=== PATIENT | male | born 1975 | race Caucasian/White ===

== ENCOUNTER 2023-05-09 08:49 | Emergency (ER) | payer OTHER ==
--- NOTE | 2023-05-09 09:01 | ED ---
Neuro HPI - General Stated Complaint: AMS Time Seen by Provider: 05/09/23 08:50 - History of Present Illness Is the patient presenting with stroke symptoms?: Yes Review of Systems ROS Statement: Those systems with pertinent positive or pertinent negative responses have been documented in the HPI. ROS Other: All systems not noted in ROS Statement are negative. Disposition Referrals: None,Stated [Primary Care Provider] - 1-2 days
--- NOTE | 2023-05-09 09:03 | ED ---
General Adult HPI - General Chief complaint: Neuro Symptoms/Deficit Stated complaint: AMS Time Seen by Provider: 05/09/23 08:50 Source: EMS Mode of arrival: EMS - History of Present Illness Initial comments: 47-year-old male with no past medical history presents emergency department with possible strokelike symptoms. He showed up at an auto repair shop this morning and was visibly confused. They state that he was walking around and had an episode of vomiting. EMS was called. They state that they could not get any answers from the patient. He could not say his name and was not following any commands. They got a hold of the patient's daughter who states that he had a s imilar episode one month ago however did not seek follow-up. He has no reported medical problems and does not take any medications. It is unknown when the patient was his last known well as he lives alone and his daughters live out of town. The patient denies any pain. No visible head injury. No other alleviating, precipitating or modifying factors - Related Data Allergies Allergy/AdvReac Type Severity Reaction Status Date / Time No Known Allergies Allergy Verified 05/09/23 09:19 Review of Systems ROS Statement: Those systems with pertinent positive or pertinent negative responses have been documented in the HPI. ROS Other: All systems not noted in ROS Statement are negative. Past Medical History Past Medical History: Unable to Obtain History of Any Multi-Drug Resistant Organisms: Unobtainable Past Surgical History: Unable to Obtain Past Psychological History: Unable to Obtain Smoking Status: Unknown if ever smoked Past Alcohol Use History: Unable to Obtain Past Drug Use History: Unable to Obtain General Exam Limitations: altered mental status (Significant expressive aphasia) General appearance: alert Head exam: Present: atraumatic, normocephalic, normal inspection Eye exam: Present: normal appearance, PERRL, EOMI. Absent: scleral icterus, conjunctival injection, periorbital swelling ENT exam: Present: normal exam, mucous membranes moist Respiratory exam: Present: normal lung sounds bilaterally. Absent: respiratory distress, wheezes, rales, rhonchi, stridor Cardiovascular Exam: Present: regular rate, normal rhythm, normal heart sounds. Absent: systolic murmur, diastolic murmur, rubs, gallop, clicks GI/Abdominal exam: Present: soft, normal bowel sounds. 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 Mild dysarthria, right-sided facial droop) Psychiatric exam: Present: flat affect Skin exam: Present: warm, dry, intact, normal color. Absent: rash Course Vital Signs 05/09/23 05/09/23 05/09/23 08:51 09:00 09:15 Temperature 98.0 F 98.0 F Pulse Rate 75 75 78 Respiratory 18 18 18 Rate Blood Pressure 150/100 150/99 164/100 O2 Sat by Pulse 95 97 97 Oximetry 05/09/23 05/09/23 05/09/23 09:30 09:45 10:00 Temperature Pulse Rate 76 77 78 Respiratory 18 18 18 Rate Blood Pressure 159/99 155/100 164/108 O2 Sat by Pulse 96 97 97 Oximetry 05/09/23 10:14 Temperature 98.0 F Pulse Rate 75 Respiratory 18 Rate Blood Pressure 152/100 O2 Sat by Pulse 97 Oximetry - Reevaluation(s) Reevaluation #1: Spoke with Dr. Inman - patient going for imaging 05/09/23 09:04 Medical Decision Making - Medical Decision Making Was pt. sent in by a medical professional or institution (, PA, ANESTHESIA TECHNICIAN, urgent care, hospital, or penitentiary...) When possible be specific @ -No Did you speak to anyone other than the patient for history (EMS, parent, family, police, friend...)? What history was obtained from this source @ -I spoke with EMS and the patient's daughter who states she last talked to him on Sunday Did you review nursing and triage notes (agree or disagree)? Why? @ -I reviewed and agree with nursing and triage notes Were old charts reviewed (outside hosp., previous admission, EMS record, old EKG, old radiological studies, urgent care reports/EKG's, penitentiary records)? Report findings @ -No old charts available for review Differential Diagnosis (chest pain, altered mental status, abdominal pain women, abdominal pain men, vaginal bleeding, weakness, fever, dyspnea, syncope, headache, dizziness, GI bleed, back pain, seizure, CVA, palpatations, mental health, musculoskeletal)? @ -Differential CVA Ischemic stroke, hemorrhagic stroke, brain tumor, atypical migraine, Wernicke's encephalopathy, seizure, multiple sclerosis, meningitis, encephalitis, hypoglycemia, Guillain-Yee, electrolytes disturbance, myasthenia gravis.... This is not meant to be an all-inclusive list EKG interpreted by me (3pts min.). @ -Yes and demonstrates sinus rhythm with a rate of 74. Para 139. QRS 85. QTC of 391. Mild ST segment elevation in V3 isolated X-rays interpreted by me (1pt min.). @ -None done CT interpreted by me (1pt min.). @ -Yes and demonstrates ischemic stroke in the left parietal region U/S interpreted by me (1pt. min.). @ -None done What testing was considered but not performed or refused? (CT, X-rays, U/S, labs)? Why? @ -None What meds were considered but not given or refused? Why? @ -None Did you discuss the management of the patient with other professionals (professionals i.e. Dr., PA, ANESTHESIA TECHNICIAN, lab, RT, psych nurse, social media coordinator, sales account associate, teacher, facilities officer, egg caser)? Give summary @ -I spoke with Dr. Inman. He recommends 180 mg of Brillinta, 325 mg Aspirin and 80 mg of atorvastatin. Would like the patient transferred to [facility]. Also spoke with Dr. Miranda doctor Was smoking cessation discussed for >3mins.? @ -No Was critical care preformed (if so, how long)? @ -yes, 40 minutes Were there social determinants of health that impacted care today? How? (Homelessness, low income, unemployed, alcoholism, drug addiction, transportation, low edu. Level, literacy, decrease access to med. care, nursing home, rehab)? @ -No Was there de-escalation of care discussed even if they declined (Discuss DNR or withdrawal of care, Hospice)? DNR status @ -No What co-morbidities impacted this encounter? (DM, HTN, Smoking, COPD, CAD, Cancer, CVA, ARF, Chemo, Hep., AIDS, mental health diagnosis, sleep apnea, morbid obesity)? @ -None Was patient admitted / discharged? Hospital course, mention meds given and route, prescriptions, significant lab abnormalities, going to OR and other per tinent info. @ -Arrival patient was placed into room 24. Thorough history is attempted. Patient does have right-sided deficits including facial droop or extremity weakness. He is expressively aphasic. Code stroke was activated. Last known well is unknown. NIH is assessed and is 8. Patient sent for CT and CT angiography. Imaging is consistent with a left MCA stroke. I spoke with Dr. Inman who recommends aspirin, atorvastatin and brillinta, 1 L IV fluids. He would like the patient transferred to [facility]. Did call and speak with Dr. Miranda who does accept transfer the patient. He will be transferred in stable condition. Daughter does arrive at bedside and COBRA forms are signed Undiagnosed new problem with uncertain prognosis? @ -yes Drug Therapy requiring intensive monitoring for toxicity (Heparin, Nitro, Insulin, Cardizem)? @ -No Were any procedures done? @ -No Diagnosis/symptom? @ -Acute right-sided weakness, expressive aphasia, acute stroke Acute, or Chronic, or Acute on Chronic? @ -Acute Uncomplicated (without systemic symptoms) or Complicated (systemic symptoms)? @ -Complicated Side effects of treatment? @ -No Exacerbation, Progression, or Severe Exacerbation? @ -No Poses a threat to life or bodily function? How? (Chest pain, USA, ME, pneumonia, PE, COPD, DKA, ARF, appy, cholecystitis, CVA, Diverticulitis, Homicidal, Suicidal, threat to staff... and all critical care pts) @ -yes - patient is having acute stroke - Lab Data Result diagrams: 05/09/23 09:31 05/09/23 09:31 Lab Results 05/09/23 05/09/23 05/09/23 Range/Units 09:31 09:31 09:31 WBC 16.3 H (3.8-10.6) k/uL RBC 6.22 H (4.30-5.90) m/uL Hgb 18.5 H (13.0-17.5) gm/dL Hct 56.7 H (39.0-53.0) % MCV 91.1 (80.0-100.0) fL MCH 29.7 (25.0-35.0) pg MCHC 32.6 (31.0-37.0) g/dL RDW 14.6 (11.5-15.5) % Plt Count 272 (150-450) k/uL MPV 7.3 Neutrophils % 77 % Lymphocytes % 15 % Monocytes % 5 % Eosinophils % 2 % Basophils % 1 % Neutrophils # 12.6 H (1.3-7.7) k/uL Lymphocytes # 2.5 (1.0-4.8) k/uL Monocytes # 0.8 (0-1.0) k/uL Eosinophils # 0.3 (0-0.7) k/uL Basophils # 0.1 (0-0.2) k/uL Sodium 137 (137-145) mmol/L Potassium 4.8 (3.5-5.1) mmol/L Chloride 107 (98-107) mmol/L Carbon Dioxide 21 L (22-30) mmol/L Anion Gap 9 mmol/L BUN 12 (9-20) mg/dL Creatinine 0.99 (0.66-1.25) mg/dL Est GFR (CKD-EPI)AfAm >90 (>60 ml/min/1.73 sqM) Est GFR (CKD-EPI)NonAf 90 (>60 ml/min/1.73 sqM) Glucose 97 (74-99) mg/dL Calcium 9.2 (8.4-10.2) mg/dL Total Bilirubin 0.6 (0.2-1.3) mg/dL AST 27 (17-59) U/L ALT 18 (4-49) U/L Alkaline Phosphatase 86 (38-126) U/L Creatine Kinase 79 (55-170) U/L Troponin I <0.012 (0.000-0.034) ng/mL Total Protein 7.4 (6.3-8.2) g/dL Albumin 4.1 (3.5-5.0) g/dL Disposition Clinical Impression: Cerebrovascular accident (CVA), Expressive aphasia, Right sided weakness Disposition: OTHER INSTITUTION NOT DEFINED Condition: Serious Is patient prescribed a controlled substance at d/c from ED?: No Referrals: None,Stated [Primary Care Provider] - 1-2 days Time of Disposition: 10:06 - Out of Hospital Transfer - Req. Specs Out of Hospital Transfer - Requested Specifics: Other Emergency Center ([facility]
--- NOTE | 2023-05-09 09:23 | CT ---
EXAMINATION TYPE: CT brain wo con DATE OF EXAM: 05/09/2023 COMPARISON: None HISTORY: RT side weakness and facial droop. aphasia CT DLP: 1147.6 mGycm. Automated Exposure Control for Dose Reduction was Utilized. TECHNIQUE: CT scan of the head is performed without contrast. FINDINGS: There is no acute intracranial hemorrhage, mass effect, or midline shift identified. The ventricles and sulci are within normal limits in size. The globes are intact and changes of chronic sinusitis.. There is abnormal attenuation in the left parieto-occipital and left parietal lobe. Area of low attenuation in the left temporal lobe is suggestive of remote ischemia. IMPRESSION: 1. Age-indeterminate left parietal\and parieto-occipital ischemia. Cannot exclude acute ischemia. Con finish remover MRI. No acute hemorrhage. 2. Low-attenuation left temporal lobe likely on the basis of remote ischemia.
[2023-05-09] MEDS ORDERED: TICAGRELOR 90 MG TAB PO STA (09:37)
[2023-05-09] MEDS ORDERED: ASPIRIN 325 MG TAB PO STA (09:38)
[2023-05-09 09:39] VITALS: RESP 18; TEMP 98
[2023-05-09] MEDS ORDERED: ATORVASTATIN 80 MG TAB PO STA (09:39)
[2023-05-09] MEDS ORDERED: SODIUM CHLORIDE 0.9% 1,000 ML IV ONE (09:40)
--- NOTE | 2023-05-09 09:46 | CT ---
EXAMINATION TYPE: CT angio head neck DATE OF EXAM: 05/09/2023 COMPARISON: None HISTORY: Rt side weakness, facial droop, some aphasia CT DLP: 778.8 mGycm CONTRAST: Performed with IV Contrast, patient injected with 65 mL of Isovue 370. Combination Contrast CTA cervical carotids and [place] CTA cervical carotids with 3-D recons truction Contrast CTA of the cervical carotids was performed 3-D reconstruction imaging obtained at a separate workstation. Right carotid system: No significant plaque is seen of the right common carotid artery. There is No significant plaque also noted at the carotid bulb and proximal ICA. No significant diameter reductio n. ECA is patent. Right vertebral artery appears unremarkable. Left carotid system: No significant plaque is seen of the left common carotid artery. There is No si gnificant plaque also noted at the carotid bulb and proximal ICA. No significant diameter reduction. ECA is patent. Left vertebral artery appears unremarkable. IMPRESSION: 1. No significant diameter reduction to account for the patient's symptoms. CTA [place] with 3-D reconstruction Contrast CTA of the [place] was performed 3-D reconstruction imaging obtained at a separate workstation. Vertebrobasilar system as well as intracranial portions of the internal carotid arteries are patent. On the 3-D images of the intracranial vasculature there is luminal narrowing involving the distal lef t M1 segment however this does not persist with certainty on the source data set. CHEL[place], WET CLEANER MACHINE and right MCA appear to be grossly patent at this time. I do not see evidence for sizable aneurysm or vascular malformation. Please note MRI provides greater sensitivity and specificity. Brain images demonstrate decreased attenuation left occipital left parietal occipital region. Correlate for acute ischemia. IMPRESSION: 1. On the 3-D images of the intracranial vasculature there is luminal narrowing involving the distal left M1 segment however this does not persist with certainty on the source data set. Stenosis is not excluded. 2.Brain images demonstrate decreased attenuation left occipital left parietal occipital region. Corre late for acute ischemia. NASCET criteria was used in interpretation of this exam?
[2023-05-09 10:12] LABS: Basophils # (A) 0.1 k/uL (0-0.2); Basophils % (A) 1 %; Eosinophils # (A) 0.3 k/uL (0-0.7); Eosinophils % (A) 2 %; HGB 18.5 gm/dL (13.0-17.5); Lymphocytes # (A) 2.5 k/uL (1.0-4.8); Lymphocytes % (A) 15 %; MCH 29.7 pg (25.0-35.0); MCHC 32.6 g/dL (31.0-37.0); MCV 91.1 fL (80.0-100.0); Mean Platelet Volume 7.3; Monocytes # (A) 0.8 k/uL (0-1.0); Monocytes % (A) 5 %; Neutrophils # (A) 12.6 k/uL (1.3-7.7); Neutrophils % (A) 77 %; Platelet Count 272 k/uL (150-450); RBC 6.22 m/uL (4.30-5.90); RDW 14.6 % (11.5-15.5); WBC 16.3 k/uL (3.8-10.6)
[2023-05-09 10:27] LABS: HCT 56.7 % (39.0-53.0)
[2023-05-09 10:33] VITALS: BP 152/100; PULSE 75
[2023-05-09 10:34] LABS: ALT 18 U/L (4-49); African American GFR (CKD) >90 (>60 ml/min/1.73 sqM); Albumin 4.1 g/dL (3.5-5.0); Anion Gap 9 mmol/L; Blood Urea Nitrogen 12 mg/dL (9-20); Calcium 9.2 mg/dL (8.4-10.2); Carbon Dioxide 21 mmol/L (22-30); Chloride 107 mmol/L (98-107); Creatine Kinase 79 U/L (55-170); Glucose 97 mg/dL (74-99); Non-African American GFR(CKD) 90 (>60 ml/min/1.73 sqM); Sodium 137 mmol/L (137-145); Total Bilirubin 0.6 mg/dL (0.2-1.3); Total Protein 7.4 g/dL (6.3-8.2)
[2023-05-09 10:35] LABS: AST 27 U/L (17-59); Alkaline Phosphatase 86 U/L (38-126); Potassium 4.8 mmol/L (3.5-5.1)
== END 2023-05-09 10:15 | disposition other institution (70) ==
LOC: EC 08:49
DX: I63.9 Cerebral infarction, unspecified (principal); R47.01 Aphasia; R29.810 Facial weakness; R29.708 NIHSS score 8
CPT/HCPCS: 36415; 93005; 80053; 82550; 84484; 85025; 70496; 70450; 70498; 99291; Q9967

== ENCOUNTER 2023-06-13 20:52 | Emergency (ER) | payer OTHER ==
[2023-06-13] MEDS ORDERED: SODIUM CHLORIDE 0.9% 1,000 ML IV STA (21:07)
[2023-06-13 21:10] VITALS: TEMP 97.9
[2023-06-13 21:10] LABS: Glucose,Whole Blood 104 mg/dL (70-110)
--- NOTE | 2023-06-13 21:11 | ED ---
Neuro HPI - General Chief Complaint: Neuro Symptoms/Deficit Stated Complaint: Stroke Time Seen by Provider: 06/13/23 21:06 Source: patient, EMS, RN notes reviewed, old records reviewed Mode of arrival: EMS Limitations: no limitations - History of Present Illness Is the patient presenting with stroke symptoms?: Yes -: unknown (patient last seen normal at 2030) Initial Comments: This is a 47-year-old male who presents to ER today for evaluation of significant deficits. Patient was found with significant deficits tonight on the bathroom and bili to move left side left arm left face with right-sided g aze. Patient presents by EMS under those conditions. Patient was last seen normal run 9 PM last night. Dinner with a friend. Location: speech, left face, dysarthria, left arm, left leg, other (right gaze) History of same: Yes Place: home Severity: severe Quality: weak, numb Improves With: none Worsens With: none On Anticoagulants: Yes (ASA) Associated Symptoms: denies other symptoms, loss of appetite, weakness Treatments Prior to Arrival: none - Related Data Home Medications: Home Medications Medication Instructions Recorded Confirmed No Known Home Medications 06/13/23 06/13/23 Allergies/Adverse Reactions: Allergies Allergy/AdvReac Type Severity Reaction Status Date / Time No Known Allergies Allergy Verified 06/13/23 22:27 Review of Systems ROS Statement: Those systems with pertinent positive or pertinent negative responses have been documented in the HPI. ROS Other: All systems not noted in ROS Statement are negative. General Exam - General Exam Comments Initial Comments: NIH of 12 Limitations: altered mental status General appearance: alert, in no apparent distress, anxious Head exam: Present: atraumatic, normocephalic, normal inspection Eye exam: Present: normal appearance, PERRL, EOMI. Absent: scleral icterus, conjunctival injection, periorbital swelling ENT exam: Present: normal exam, mucous membranes moist Neck exam: Present: normal inspection. Absent: tenderness, meningismus, lymphadenopathy Respiratory exam: Present: normal lung sounds bilaterally. Absent: respiratory distress, wheezes, rales, rhonchi, stridor Cardiovascular Exam: Present: regular rate, normal rhythm, normal heart sounds. Absent: systolic murmur, diastolic murmur, rubs, gallop, clicks GI/Abdominal exam: Present: soft, normal bowel sounds. Absent: distended, tenderness, guarding, rebound, rigid Extremities exam: Present: normal inspection, full ROM, normal capillary refill. Absent: tenderness, pedal edema, joint swelling, calf tenderness Back exam: Present: normal inspection Neurological exam: Present: alert, oriented X3, CN II-XII intact Psychiatric exam: Present: normal affect, normal mood Skin exam: Present: warm, dry, intact, normal color. Absent: rash Stroke MDM - Lab Data Result diagrams: 06/13/23 21:05 06/13/23 21:05 Lab Results 06/13/23 06/13/23 06/13/23 Range/Units 21:05 21:05 21:05 WBC 18.4 H (3.8-10.6) k/uL RBC 6.78 H (4.30-5.90) m/uL Hgb 20.5 H* (13.0-17.5) gm/dL Hct 60.3 H* (39.0-53.0) % MCV 88.9 (80.0-100.0) fL MCH 30.2 (25.0-35.0) pg MCHC 34.0 (31.0-37.0) g/dL RDW 15.2 (11.5-15.5) % Plt Count 266 (150-450) k/uL MPV 7.2 Neutrophils % 85 % Lymphocytes % 10 % Monocytes % 3 % Eosinophils % 1 % Basophils % 1 % Neutrophils # 15.6 H (1.3-7.7) k/uL Lymphocytes # 1.8 (1.0-4.8) k/uL Monocytes # 0.6 (0-1.0) k/uL Eosinophils # 0.1 (0-0.7) k/uL Basophils # 0.1 (0-0.2) k/uL PT (10.0-12.5) sec INR (<1.2) APTT (22.0-30.0) sec Sodium 140 (137-145) mmol/L Potassium 5.3 H (3.5-5.1) mmol/L Chloride 104 (98-107) mmol/L Carbon Dioxide 17 L (22-30) mmol/L Anion Gap 19 mmol/L BUN 15 (9-20) mg/dL Creatinine 1.00 (0.66-1.25) mg/dL Est GFR (CKD-EPI)AfAm >90 (>60 ml/min/1.73 sqM) Est GFR (CKD-EPI)NonAf 89 (>60 ml/min/1.73 sqM) Glucose 103 H (74-99) mg/dL POC Glucose (mg/dL) (70-110) mg/dL POC Glu Machine Room Operator ID Calcium 9.9 (8.4-10.2) mg/dL Total Bilirubin 1.0 (0.2-1.3) mg/dL AST 26 (17-59) U/L ALT 21 (4-49) U/L Alkaline Phosphatase 110 (38-126) U/L Creatine Kinase 171 H (55-170) U/L Troponin I (0.000-0.034) ng/mL Total Protein 8.3 H (6.3-8.2) g/dL Albumin 4.8 (3.5-5.0) g/dL 06/13/23 06/13/23 Range/Units 21:05 21:05 WBC (3.8-10.6) k/uL RBC (4.30-5.90) m/uL Hgb (13.0-17.5) gm/dL Hct (39.0-53.0) % MCV (80.0-100.0) fL MCH (25.0-35.0) pg MCHC (31.0-37.0) g/dL RDW (11.5-15.5) % Plt Count (150-450) k/uL MPV Neutrophils % % Lymphocytes % % Monocytes % % Eosinophils % % Basophils % % Neutrophils # (1.3-7.7) k/uL Lymphocytes # (1.0-4.8) k/uL Monocytes # (0-1.0) k/uL Eosinophils # (0-0.7) k/uL Basophils # (0-0.2) k/uL PT (10.0-12.5) sec INR (<1.2) APTT (22.0-30.0) sec Sodium (137-145) mmol/L Potassium (3.5-5.1) mmol/L Chloride (98-107) mmol/L Carbon Dioxide (22-30) mmol/L Anion Gap mmol/L BUN (9-20) mg/dL Creatinine (0.66-1.25) mg/dL Est GFR (CKD-EPI)AfAm (>60 ml/min/1.73 sqM) Est GFR (CKD-EPI)NonAf (>60 ml/min/1.73 sqM) Glucose (74-99) mg/dL POC Glucose (mg/dL) 104 (70-110) mg/dL POC Glu Machine Room Operator ID Lucia Kern Calcium (8.4-10.2) mg/dL Total Bilirubin (0.2-1.3) mg/dL AST (17-59) U/L ALT (4-49) U/L Alkaline Phosphatase (38-126) U/L Creatine Kinase (55-170) U/L Troponin I <0.012 (0.000-0.034) ng/mL Total Protein (6.3-8.2) g/dL Albumin (3.5-5.0) g/dL - NIH Stroke Scale 1a. Level of Consciousness: (1) not alert, arousable 1b. LOC Questions: (1) answers 1 question correctly 2. Best Gaze: (1) partial gaze palsy 3. Visual: (1) partial hemianopia 4. Facial Palsy: (2) partial paralysis 5a. Motor Arm Left: (3) no gravity effort 5b. Motor Arm Right: (0) no drift 6a. Motor Leg Left: (3) no gravity effort 6b. Motor Leg Right: (0) no drift 7. Limb Ataxia: (1) present 1 limb 8. Sensory: (1) mild/moderate sensory loss 9. Best Language: (1) mild/moderate aphasia 10. Dysarthria: (1) mild/moderate dysarthria 11. Extinction/Inattention: (0) no abnormality - Thrombolytic Inclusion/Exclusion Thrombolytic Exclusion Criteria: Symptom Onset > 4.5 Hours - Medical Decision Making 47 male to ER with acute CVA patient was last seen normal around 9 PM last night. Patient presents with findings of acute CVA here on exam with significantly large NIH scale greater than 12. Patient be transferred for neurology evaluation management - Radiology Data Radiology results: report reviewed (CT brain right MCA stroke CT angios does show right MCA deficit), image reviewed - EKG Data -: EKG Interpreted by Me (EKG is sinus 84 TX 192 QRS 108 QTc. 395) Past Medical History Past Medical History: Unable to Obtain Additional Past Medical History / Comment(s): hx CVA psoriasis History of Any Multi-Drug Resistant Organisms: Unobtainable Past Surgical History: Unable to Obtain Past Psychological History: Unable to Obtain Smoking Status: Unknown if ever smoked Past Alcohol Use History: Unable to Obtain Past Drug Use History: Unable to Obtain Course Vital Signs 06/13/23 06/13/23 06/13/23 20:53 20:56 21:00 Temperature 97.9 F Pulse Rate 85 82 85 Respiratory 16 19 24 Rate Blood Pressure 167/102 167/102 167/102 O2 Sat by Pulse 98 97 99 Oximetry 06/13/23 06/13/23 06/13/23 21:18 21:30 21:45 Temperature Pulse Rate 70 78 86 Respiratory 16 24 16 Rate Blood Pressure 155/65 158/107 160/107 O2 Sat by Pulse 98 97 98 Oximetry 06/13/23 06/13/23 06/13/23 22:00 22:15 22:30 Temperature Pulse Rate 89 80 82 Respiratory 14 22 20 Rate Blood Pressure 155/91 153/120 192/97 O2 Sat by Pulse 98 97 98 Oximetry - Reevaluation(s) Reevaluation #1: 06/13/23 22:33 Medical record is reviewed and 06/13/23 22:33 Code stroke paged on patient arrival Reevaluation #2: 06/13/23 22:33 Patient has no change in symptoms here in the ER Reevaluation #3: 06/13/23 22:34 Patient family informed of results and questions answered Reevaluation #4: 06/13/23 22:33 Was pt. sent in by a medical professional or institution (, PA, INSTRUCTOR OF SPANISH, urgent care, hospital, or correction...) When possible be specific @ -no Did you speak to anyone other than the patient for history (EMS, parent, family, police, friend...)? What history was obtained from this source @ -no Did you review nursing and triage notes (agree or disagree)? Why? @ -agree Are old charts reviewed (outside hosp., previous admission, EMS record, old EKG, old radiological studies, urgent care reports/EKG's, correction records)? Report findings @ -yes Differential Diagnosis (chest pain, altered mental status, abdominal pain women, abdominal pain men, vaginal bleeding, weakness, fever, dyspnea, syncope, headache, dizziness, GI bleed, back pain, seizure, CVA, palpatations, mental health, musculoskeletal)? @ -prior EKG interpreted by me (3pts min.). @ -yes X-rays interpreted by me (1pt min.). @ -yes CT interpreted by me (1pt min.). @ -yes U/S interpreted by me (1pt. min.). @ -no What testing was considered but not performed or refused? (CT, X-rays, U/S, labs)? Why? @ -none What meds were considered but not given or refused? Why? @ -none Did you discuss the management of the patient with other professionals (professionals i.e. DrMj, PA, INSTRUCTOR OF SPANISH, lab, RT, psych nurse, protective services social worker, hvac technician residential, teacher, hospital security officer, hospice case manager)? Give summary @ -no Was smoking cessation discussed for >3mins.? @ -no Was critical care preformed (if so, how long)? @ -yes31 Were there social determinants of health that impacted care today? How? (Home lessness, low income, unemployed, alcoholism, drug addiction, transportation, low edu. Level, literacy, decrease access to med. care, [facility], rehab)? @ -none Was there de-escalation of care discussed even if they declined (Discuss DNR or withdrawal of care, Hospice)? DNR status @ -no What co-morbidities impacted this encounter? (DM, HTN, Smoking, COPD, CAD, Cancer, CVA, ARF, Chemo, Hep., AIDS, mental health diagnosis, sleep apnea, morbid obesity)? @ -none Was patient admitted / discharged? Hospital course, mention meds given and route, prescriptions, significant lab abnormalities, going to OR and other pertinent info. @ - 47 male to ER with acute CVA patient was last seen normal around 9 PM last night. Patient presents with findings of acute CVA here on exam with significantly large NIH scale greater than 12. Patient be transferred for neurology evaluation management Transfer Undiagnosed new problem with uncertain prognosis? @ -no Drug Therapy requiring intensive monitoring for toxicity (Heparin, Nitro, Insulin, Cardizem)? @ -no Were any procedures done? @ -no Diagnosis/symptom? @ -Acute CVA Acute, or Chronic, or Acute on Chronic? @ -Acute Uncomplicated (without systemic symptoms) or Complicated (systemic symptoms)? @ -Complicated Side effects of treatment? @ -no Exacerbation, Progression, or Severe Exacerbation? @ -exacerbation Poses a threat to life or bodily function? How? (Chest pain, USA, CA, pneumonia, PE, COPD, DKA, ARF, appy, cholecystitis, CVA, Diverticulitis, Homicidal, Suicidal, threat to staff... and all critical care pts) @ -yes acute CVA Reevaluation #5: 06/13/23 22:33 Differential CVA Ischemic stroke, hemorrhagic stroke, brain tumor, atypical migraine, Wernicke's encephalopathy, seizure, multiple sclerosis, meningitis, encephalitis, hypoglycemia, Guillain-Yee, electrolytes disturbance, myasthenia gravis.... This is not meant to be an all-inclusive list - Consultations Consultation #1: Spoke with [facility] excepting patient has transfer Critical Care Time Critical Care Time: Yes Total Critical Care Time: 31 Disposition Clinical Impression: Cerebrovascular accident (CVA), Acute right MCA stroke Disposition: OTHER INSTITUTION NOT DEFINED Condition: Critical Is patient prescribed a controlled substance at d/c from ED?: No Referrals: None,Stated [Primary Care Provider] - 1-2 days Time of Disposition: 22:20 - Out of Hospital Transfer - Req. Specs Out of Hospital Transfer - Requested Specifics: Other Emergency Center ([facility])
[2023-06-13 21:34] LABS: Basophils # (A) 0.1 k/uL (0-0.2); Basophils % (A) 1 %; Eosinophils # (A) 0.1 k/uL (0-0.7); Eosinophils % (A) 1 %; Lymphocytes # (A) 1.8 k/uL (1.0-4.8); Lymphocytes % (A) 10 %; MCH 30.2 pg (25.0-35.0); MCV 88.9 fL (80.0-100.0); Mean Platelet Volume 7.2; Monocytes # (A) 0.6 k/uL (0-1.0); Monocytes % (A) 3 %; Neutrophils # (A) 15.6 k/uL (1.3-7.7); Neutrophils % (A) 85 %; Platelet Count 266 k/uL (150-450); RBC 6.78 m/uL (4.30-5.90); RDW 15.2 % (11.5-15.5); WBC 18.4 k/uL (3.8-10.6)
[2023-06-13 21:40] LABS: HGB 20.5 gm/dL (13.0-17.5)
[2023-06-13 21:41] LABS: HCT 60.3 % (39.0-53.0)
[2023-06-13 21:42] LABS: ALT 21 U/L (4-49); AST 26 U/L (17-59); African American GFR (CKD) >90 (>60 ml/min/1.73 sqM); Albumin 4.8 g/dL (3.5-5.0); Alkaline Phosphatase 110 U/L (38-126); Anion Gap 19 mmol/L; Blood Urea Nitrogen 15 mg/dL (9-20); Calcium 9.9 mg/dL (8.4-10.2); Carbon Dioxide 17 mmol/L (22-30); Chloride 104 mmol/L (98-107); Creatine Kinase 171 U/L (55-170); Glucose 103 mg/dL (74-99); Non-African American GFR(CKD) 89 (>60 ml/min/1.73 sqM); Potassium 5.3 mmol/L (3.5-5.1); Sodium 140 mmol/L (137-145); Total Protein 8.3 g/dL (6.3-8.2)
--- NOTE | 2023-06-13 21:49 | CT ---
EXAMINATION TYPE: CT brain reddine wo con DATE OF EXAM: 06/13/2023 COMPARISON: 05/09/2023 HISTORY: Neuro deficit, acute, stroke suspected. found unresponsive CT DLP: 1765.40 mGycm, Automated exposure control for dose reduction was used. CONTRAST: Patient injected with 0 mL of Isovue 300. CT of the brain is performed utilizing 3 mm thick sections through the posterior fossa and 3 mm thick sections through the remaining calvarium. Study is performed within 24 hours of arrival to the hospital. No abnormal hyperdensity is present to suggest an acute intracranial hemorrhage. No mass lesion is evident. There is some hypodensity within the lateral left temporal lobe present previously. There may be some subtle right middle cerebral artery distribution hypodensity which may be an interv al change. There is some effacement of sulci in this region. Correlate with the patient's neurologic symptoms. Acute ischemia may be present at this location. Report was called to the emergency room by by telephone at the time of interpretation. 2147 hours 06/13/2023 Ventricles and sulci are otherwise appropriate for the patient age. Paranasal sinuses and mastoid air cells within the [id number] are clear. IMPRESSIONS: 1. Hypodensity within the right MCA distribution with effacement of sulci. Acute ischemic changes lik roly present. CT cervical spine. COMPARISON: None CT of the cervical spine is performed in the axial plane at 2 mm thick sections. Reconstructed image s in the coronal, and sagittal plane are reviewed on the computer. No acute fractures are evident. Vertebral body alignment is normal. Some posterior disc space narrowing is present C5-6. Some minimal posterior spurring is present. Vertebral body heights are preserved. No spinal canal stenosis is evident. No neural foraminal stenosis is evident. IMPRESSION: 1. No acute osseous abnormality cervical spine. 2. Degenerative disc changes cervical spine.
--- NOTE | 2023-06-13 22:06 | CT ---
EXAMINATION TYPE: CT angio head neck DATE OF EXAM: 06/13/2023 HISTORY: Neuro deficit, acute, stroke suspected. Found unresponsive COMPARISON: CT DLP: 482.10 mGycm. Automated Exposure Control for Dose Reduction was Utilized. TECHNIQUE: CTA scan of the neck is performed with IV Contrast, patient injected with 65ml mL of Isov ue 370, axial images are obtained, coronal and sagittal reformatted images are reviewed. Three-D leo nstructed images are created on an independent workstation and reviewed. Source images are reviewed. FINDINGS: Carotid/Vascular Structures: There is a 3 vessel arch. Common carotid arteries bifurcate into internal and external carotid arteries without significant alba w limiting stenosis. Vertebral arteries are codominant. Internal carotid arteries and vertebral arteries are patent to the skull base. Cervical of Summers: Vertebral basilar system appears normal. Posterior cerebral vasculature is unrema rkable. Internal carotid arteries bifurcate normally into A1 and M1 segments. A2 segments are normal. The right middle cerebral artery M1 branch appears to be a occluded at its origin. Tiny amount of con trast may extend to middle cerebral artery branches. This is significantly asymmetric with the contra lateral left side compatible with acute infarct. The anterior communicating artery is patent. The right posterior communicating artery is patent. The left posterior communicating artery is patent. IMPRESSION: 1. Significantly diminished flow within the right middle cerebral artery. Findings compatible with ri ght middle cerebral artery infarct. Preliminary Report was called to the emergency room by Dr. Sarah valdez by telephone 2151 hours 06/13/2023. 2. No flow-limiting stenosis bilateral carotid bifurcations. NASCET criteria was used in interpretation of this exam?
[2023-06-13 22:55] VITALS: BP 192/97; PULSE 82; RESP 20
== END 2023-06-13 22:46 | disposition other institution (70) ==
LOC: EC 20:52
DX: I63.9 Cerebral infarction, unspecified (principal); I63.311 Cerebral infarction due to thrombosis of right middle cerebral artery
CPT/HCPCS: 36415; 93005; 80053; 82550; 84484; 85025; 85610; 85730; 72125; 70496; 70450; 70498; 99291; 96360; Q9967